=== PATIENT | male | born 1995 | race Caucasian/White ===

== ENCOUNTER 2021-11-07 15:46 | Emergency (ER) | payer OTHER ==
[~2021-11-07] VITALS: Ht 180.3 cm; Wt 95.5 kg
[2021-11-07 15:47] VITALS: BP 126/80
== END 2021-11-07 17:07 | disposition home or self-care (01) ==
LOC: M ED 15:46
DX: M65.271 Calcific tendinitis, right ankle and foot (principal)

== ENCOUNTER 2021-12-19 22:08 | Emergency (ER) | payer OTHER ==
[~2021-12-19] VITALS: Ht 180.3 cm; Wt 93.2 kg
[2021-12-19 22:08] VITALS: BP 135/78
== END 2021-12-19 22:59 | disposition left against medical advice (07) ==
LOC: M ED 22:08
DX: Z53.21 Procedure and treatment not carried out due to patient leaving prior to being seen by health care provider (principal)